=== PATIENT | male | born 1980 | race Caucasian/White ===

== ENCOUNTER 2017-10-13 17:54 | Emergency (ER) | payer SELFPAY ==
--- NOTE | 2017-10-13 18:06 | ED Physician Documentation ---
Shoulder Injury/Pain - HISTORIAN Historian: patient - HPI Stated Complaint: left shoulder pain - resolved now Chief Complaint: Shoulder Injury/ Pain Onset: today (5 hours ago ) Severity: other (no pain now ) Pain: other (resolved ) - ROS CONST: no problems CVS/RESP: denies: chest pain, shortness of breath GI/: denies: vomiting MS/SKIN/LYMPH: denies: neck pain, back pain, rash NEURO: denies: headache - PAST HX Past History: none Immunizations: UTD Allergies/Adverse Reactions: Allergies Allergy/AdvReac Type Severity Reaction Status Date / Time No Known Drug Allergies Allergy Verified 10/13/17 18:08 Home Medications: Ambulatory Orders Medication Instructions Recorded Levothyroxine Sodium [Levo-T] 75 mcg PO D 10/13/17 - SOCIAL HX Smoking History: cigarettes Alcohol Use: none Drug Use: none - FAMILY HX Family History: none - VITAL SIGNS Vital Signs: Vital Signs Temp Pulse Resp BP Pulse Ox 97.3 F L 92 H 18 126/82 98 10/13/17 18:03 10/13/17 18:03 10/13/17 19:00 10/13/17 19:00 10/13/17 19:00 - REVIEWED ASSESSMENT Nursing Assessment Reviewed: Yes Vitals Reviewed: Yes ED Results Lab/Radiology - Radiology Radiology Impressions: Left shoulder three views History: Pain and history of dislocation Findings: The left shoulder is unremarkable without fracture, dislocation, arthropathy, or focal bone lesion. Electronically signed on Oct 13, 2017 6:34:07 PM CDT by: Sam Elkins - Orders Orders: ED Orders Category Date Time Status SHOULDER 2 VIEWS OR MORE [RAD] Stat Exams 10/13/17 Completed Shoulder Injury Physical Exam - Physical Exam General Appearance: no acute distress, alert Shoulder: no acute distress, full ROM, no dislocation Upper Extremity: no injury below shoulder Neuro: sensation nml, motor nml Vascular: no vascular compromise, motor nml, sensation nml Skin: warm/dry, normal color Head/ENT: nml inspection Respiratory: chest non-tender, heart sounds nml CVS: reg rate & rhythm, heart sounds normal Abdomen: soft, no organomegaly, normal bowel sounds, no abdominal bruit, no distension Discharge Clincal Impression: Shoulder injury Qualifiers: Encounter type: initial encounter Laterality: left Qualified Code(s): S49.92XA - Unspecified injury of left shoulder and upper arm, initial encounter Referrals: Primary Doctor,No [Primary Care Provider] - 2 Days Comments: 1. no injury noted Condition: Stable Disposition: 01 HOME, SELF-CARE Decision to Admit: NO Date of Decison to Admit: 10/13/17 Decision Time: 18:49
--- NOTE | 2017-10-13 18:49 | Diagnostic Imaging Report ---
PAR[facility] LIN [facility] [id number] [facility].[address] [id number] Report Submission Date: Oct 13, 2017 6:34:07 PM CDT Patient Study Name: VIVIENNE BHANDARI Date: Oct 13, 2017 6:10:48 PM CDT Modality Type: DX Gender: M Description: SHOULDER : 82 Institution: [facility] Physician: PARISH LIN Left shoulder three views History: Pain and history of dislocation Findings: The left shoulder is unremarkable without fracture, dislocation, arthropathy, or focal bone lesion. Electronically signed on Oct 13, 2017 6:34:07 PM CDT by: Sam KELLOGG
[2017-10-13 19:04] VITALS: BP 126/82
== END 2017-10-13 19:00 | disposition home or self-care (01) ==
LOC: ED 17:54
DX: S49.92XA Unspecified injury of left shoulder and upper arm, initial encounter (principal); X58.XXXA Exposure to other specified factors, initial encounter; Y92.9 Unspecified place or not applicable; Y93.9 Activity, unspecified; Y99.9 Unspecified external cause status
CPT/HCPCS: 73030; 99283